=== PATIENT | male | born 1940 | race Caucasian/White ===

== ENCOUNTER 2018-04-12 12:05 | Inpatient (IN) ==
[2018-04-12] MEDS ORDERED: *HR* FentaNYL (PF) 100 MCG/2 ML VIAL IVP ONE (12:28)
[2018-04-12] MEDS ORDERED: 0.9 % Sodium Chloride 1,000 ML IVC ONE (12:28)
--- NOTE | 2018-04-12 12:31 | Emergency Department Note ---
Disposition Clinical Impression: Fecal impaction of rectum Urinary tract infection Qualifiers: Urinary tract infection type: site unspecified Hematuria presence: without hematuria Qualified Code(s): N39.0 - Urinary tract infection, site not specified Disposition: Admitted As Inpatient Condition: Fair Referrals: NONE,PCP [Non-Partnered Physician] - Forms: ED Satisfaction Letter, Work/School Release Time of Disposition: 13:55 Abdominal Pain HPI - General Chief Complaint: ED General Medical Stated Complaint: decreased urine after catherer change Time Seen by Provider: 04/12/18 12:17 Source: patient, EMS, other Mode of arrival: EMS Limitations: no limitations Nursing Notes Reviewed: Yes Vital Signs Reviewed: Yes - History of Present Illness Pt Subjective Complaint: abdominal pain Onset (ago): day(s) Consistency: constant Location: diffuse Pain Severity: moderate Quality: sharp Radiation: none Migration to: no migration Improves with: nothing Worsens with: nothing Associated symptoms: Reports: constipation. Denies: nausea, vomiting, fever Treatments prior to arrival: none - Related Data Home Medications Medication Instructions Recorded Confirmed Acetaminophen [Tylenol] 500 mg PO Q8HR PRN 02/09/16 04/12/18 Albuterol Sulfate [Ventolin Hfa] 1 puff IH Q4H PRN 02/09/16 04/12/18 Ascorbic Acid [Vitamin C] 500 mg PO DAILY 02/09/16 04/12/18 Calcium Carbonate [Calcium] 600 mg PO DAILY 02/09/16 04/12/18 Cholecalciferol (D-3) [Vitamin D] 1,000 unit PO BID #0 02/09/16 04/12/18 Docusate Sodium [Colace] 100 mg PO BID 02/09/16 04/12/18 L. Acidophilus/Pectin, [place] 1 cap PO BID 02/09/16 04/12/18 [Acidophilus Probiotic Capsule] Lactulose 60 ml PO QMWF 02/09/16 04/12/18 Polyethylene Glycol 3350 [MiraLAX] 17 gm PO DAILY PRN 02/09/16 04/12/18 Potassium Chloride 20 meq PO TID 02/19/16 04/12/18 traMADol [Ultram] 50 - 100 mg PO TID 02/19/16 04/12/18 Ferrous Sulfate 325 mg PO DAILY 04/12/18 04/12/18 Ketotifen Fumarate [Zaditor] 2 drop OP DAILY 04/12/18 04/12/18 Multivitamin/Iron/Folic Acid 1 each PO DAILY 04/12/18 04/12/18 [Centrum Complete Multivit Tab] Tacrolimus [Protopic] 100 gm TP BID 04/12/18 04/12/18 Previous Rx's Medication Instructions Recorded Magnesium Oxide [Mag-Ox] 400 mg PO BID 365 Days tablet 02/21/16 Allergies Allergy/AdvReac Type Severity Reaction Status Date / Time No Known Allergies Allergy Verified 04/12/18 12:07 All systems ED: reviewed and negative except as stated. Constitutional: Denies: fever, chills ENT ED: Denies: ear pain, throat pain, congestion Cardiovascular: Denies: chest pain, palpitations Respiratory: Denies: cough, dyspnea Gastrointestinal: Reports: abdominal pain, constipation. Denies: nausea, vomiting Neurological: Denies: headache Abdominal Pain PMH - Past Medical History Medical history: Reports: atrial fibrillation, cardiomyopathy, CHF, COPD, osteoporosis, other Male Surgical History: Reports: appendectomy, cholecystectomy, Tonsillectomy Psychiatric history: Reports: depression - Social History Smoking status: Former smoker Alcohol use: Reports: none Drug use: Reports: none Physical Exam - General Limitations: no limitations General appearance: alert, in no apparent distress - Head Head exam: atraumatic, normocephalic, normal inspection - Eye Eye exam: Present: normal appearance, PERRL, EOMI. Absent: scleral icterus, conjunctival injection - ENT ENT exam: normal exam, normal oropharynx, mucous membranes moist, normal external ear exam - Neck Neck exam: Present: trachea midline - Chest Chest inspection: Present: symmetric chest wall rise. Absent: tenderness - Respiratory Respiratory exam: Present: normal lung sounds bilaterally. Absent: respiratory distress, wheezes - Cardiovascular Cardiovascular exam: Present: normal rhythm, tachycardia, normal heart sounds - Abdominal Exam Abdominal exam: Present: tenderness, distention, other (Bowel sounds are present but high-pitched) Abdominal tenderness: Present: diffuse, moderate - Rectal Exam Tower Climber present during exam: Yes Rectal exam: Present: other (No evidence of fecal impaction) - Extremities Exam Extremities exam: Absent: pedal edema - Neurological Exam Neurological exam: Present: alert, oriented X3 - Psychiatric Psychiatric exam: Present: normal affect, normal mood - Skin Skin exam: Present: warm, dry. Absent: rash Course Course Narrative: Patient presents with abdominal discomfort and abdominal distention. Home health nurse changed his suprapubic catheter this morning and noticed the diste ntion of the belly in is concerned about the output from the catheter. However I examined the catheter and a been ultrasounded the bladder and catheter is definitely in place and there is urine coming from the Zhang into the tube. However the patient is really distended in the abdomen. He has bowel sounds but they are high pitched and I am concerned about the possibly of obstruction. He has long-standing history of constipation. I did not feel a fecal impaction on my rectal examination. I am going to do a lab workup, CT his abdomen to check for obstruction before we tried doing anything to get stool out of the colon. I will get him some pain medicines and IV fluids. Disposition will be based on diagnostic results and reevaluation. - Reevaluation(s) Reevaluation #1: The CAT scan showed fecal impaction but no obstruction or perforation. There is a lot of air in the colon proximal to that fecal impaction. Furthermore his white count was 20,000 and his urinalysis is strongly positive. He did a fecal disimpaction but also needs to be treated for urinary tract infection. The outside facility said that there was some hypotension but we never saw any hypotension here. His blood pressure right now is 100/70. We will give him IV fluids and I get him started on some Rocephin. I have already spoken with the hospitalist and arrange to get the patient admitted. Time: 13:54 - Consultations Consultation #1: Dr. Steel, hospitalist - I discussed the case with the hospitalist. We reviewed his presentation and his diagnostic results. He is accepted the patient for admission to the hospital. Time: 13:50 Vital Signs Temperature 99.3 F 04/12/18 12:08 Pulse Rate 118 04/12/18 12:08 Respiratory Rate 20 04/12/18 12:08 Blood Pressure 113/71 04/12/18 12:08 O2 Sat by Pulse Oximetry 97 04/12/18 12:08 Temperature 99.3 F 04/12/18 12:08 Pulse Rate 97 04/12/18 13:03 Respiratory Rate 18 04/12/18 13:03 Blood Pressure 104/74 04/12/18 13:03 O2 Sat by Pulse Oximetry 98 11/20/18 13:03 Oxygen Delivery Oxygen Delivery Room Air Abdominal Pain - Medical Records Medical records reviewed: Yes I reviewed the patient's medical records. - Lab Data Lab results reviewed: Yes I reviewed the patient's lab results. Result diagrams: 04/12/18 12:44 04/12/18 12:44 Lab Results 04/12/18 04/12/18 04/12/18 Range/Units 12:28 12:44 12:44 WBC 20.8 H (4.3-11.1) K/mcL RBC 4.24 (4.19-5.50) M/mcL Hgb 12.1 L (12.9-16.9) g/dL Hct 37.3 L (37.5-50.1) % MCV 88.0 (83.0-100.0) fL MCH 28.5 (28.0-33.3) pg MCHC 32.4 (31.6-35.5) g/dL RDW 15.3 H (11.5-14.5) % Plt Count 248 (140-400) K/mcL MPV 9.6 (9.4-12.4) fL Immature Gran % 1.0 (0-4) % Seg Neutrophils % 83.0 % Lymphocytes % 6.4 % Monocytes % 9.4 % Eosinophils % 0.0 % Basophils % 0.2 % Neutrophils # 17.3 H (1.6-8.9) K/mcL Lymphocytes # 1.3 (0.6-4.6) K/mcL Monocytes # 2.0 H (0.0-1.3) K/mcL Eosinophils # 0.0 (0.0-0.6) K/mcL Basophils # 0.0 (0.0-0.2) K/mcL Sodium 128 L (136-145) mEq/L Potassium 3.6 (3.5-5.1) mEq/L Chloride 96 L (98-107) mEq/L Carbon Dioxide 24 (23-29) mEq/L BUN 38 H (8-23) mg/dL Creatinine 0.58 L (0.70-1.30) mg/dL Est GFR ( Amer) > 60 (> 60) Est GFR (Non-Af Amer) > 60 (> 60) BUN/Creatinine Ratio 66 H (6-26) Glucose 126 H (70-105) mg/dL Calculated Osmolality 277 L (280-300) Lactic Acid (0.5-2.2) mmol/L Calcium 9.0 (8.6-10.3) mg/dL Total Bilirubin 0.5 (0.3-1.0) mg/dL Direct Bilirubin 0.0 (0.0-0.2) mg/dL Indirect Bilirubin 0.5 (0.0-1.2) mg/dL AST 40 H (13-39) Units/L ALT 46 (7-52) Units/L Alkaline Phosphatase 112 H (34-104) Units/L Serum Total Protein 7.0 (6.4-8.9) g/dL Albumin 3.2 L (3.5-5.7) g/dL Globulin 3.8 H (2.4-3.5) g/dL Albumin/Globulin Ratio 0.8 L (1.1-2.2) Lipase 10 L (11-82) Units/L Urine Color Yellow (Yellow) Urine Clarity Turbid A (Clear) Urine pH 8.5 H (5.0-8.0) pH Units Ur Specific [place] 1.020 (1.010-1.025) Urine Protein >=300 H (Neg-Trace) mg/dL Urine Glucose (UA) Normal (Normal) mg/dL Urine Ketones Negative (Negative) mg/dL Urine Blood Large H (Negative) Urine Nitrite Negative (Negative) Urine Bilirubin Negative (Negative) Urine Urobilinogen Normal (Normal) mg/dL Ur Leukocyte Esterase Large H (Negative) Urine Microscopic RBC 30-50 H (0-3) per hpf Urine Microscopic WBC TNTC H (0-3) per hpf Ur Squamous Epith Cells Few (None-Few) per lpf Urine Bacteria Many H (None-Few) per hpf Urine Mucus Few (Few) Ur Culture Indicated? YES A (NO) 04/12/18 Range/Units 12:44 WBC (4.3-11.1) K/mcL RBC (4.19-5.50) M/mcL Hgb (12.9-16.9) g/dL Hct (37.5-50.1) % MCV (83.0-100.0) fL MCH (28.0-33.3) pg MCHC (31.6-35.5) g/dL RDW (11.5-14.5) % Plt Count (140-400) K/mcL MPV (9.4-12.4) fL Immature Gran % (0-4) % Seg Neutrophils % % Lymphocytes % % Monocytes % % Eosinophils % % Basophils % % Neutrophils # (1.6-8.9) K/mcL Lymphocytes # (0.6-4.6) K/mcL Monocytes # (0.0-1.3) K/mcL Eosinophils # (0.0-0.6) K/mcL Basophils # (0.0-0.2) K/mcL Sodium (136-145) mEq/L Potassium (3.5-5.1) mEq/L Chloride (98-107) mEq/L Carbon Dioxide (23-29) mEq/L BUN (8-23) mg/dL Creatinine (0.70-1.30) mg/dL Est GFR ( Amer) (> 60) Est GFR (Non-Af Amer) (> 60) BUN/Creatinine Ratio (6-26) Glucose (70-105) mg/dL Calculated Osmolality (280-300) Lactic Acid 2.4 H (0.5-2.2) mmol/L Calcium (8.6-10.3) mg/dL Total Bilirubin (0.3-1.0) mg/dL Direct Bilirubin (0.0-0.2) mg/dL Indirect Bilirubin (0.0-1.2) mg/dL AST (13-39) Units/L ALT (7-52) Units/L Alkaline Phosphatase (34-104) Units/L Serum Total Protein (6.4-8.9) g/dL Albumin (3.5-5.7) g/dL Globulin (2.4-3.5) g/dL Albumin/Globulin Ratio (1.1-2.2) Lipase (11-82) Units/L Urine Color (Yellow) Urine Clarity (Clear) Urine pH (5.0-8.0) pH Units Ur Specific [place] (1.010-1.025) Urine Protein (Neg-Trace) mg/dL Urine Glucose (UA) (Normal) mg/dL Urine Ketones (Negative) mg/dL Urine Blood (Negative) Urine Nitrite (Negative) Urine Bilirubin (Negative) Urine Urobilinogen (Normal) mg/dL Ur Leukocyte Esterase (Negative) Urine Microscopic RBC (0-3) per hpf Urine Microscopic WBC (0-3) per hpf Ur Squamous Epith Cells (None-Few) per lpf Urine Bacteria (None-Few) per hpf Urine Mucus (Few) Ur Culture Indicated? (NO) - Radiology Data Radiology results reviewed: Yes I reviewed the patient's radiology results.
[2018-04-12 12:43] LABS: Bilirubin,Urine Negative (Negative); Blood,Urine Large (Negative); Clarity,Urine Turbid (Clear); Color,Urine Yellow (Yellow); Glucose,Urine (UA) Normal (Normal); Ketones,Urine Negative (Negative); Leukocyte Esterase,Urine Large (Negative); Nitrite,Urine Negative (Negative); PH,Urine 8.5 pH Units (5.0-8.0); Protein,Urine >=300 mg/dL (Neg-Trace); Urobilinogen,Urine Normal (Normal)
[2018-04-12 12:52] LABS: RBC,Urine 30-50 per hpf (0-3); Squamous Epithelial Cell,Urine Few per lpf (None-Few); WBC,Urine TNTC per hpf (0-3)
[2018-04-12 12:52] LABS: Basophils % 0.2 %; Hematocrit 37.3 % (37.5-50.1); Hemoglobin 12.1 g/dL (12.9-16.9); Lymphocytes # 1.3 K/mcL (0.6-4.6); Lymphocytes % 6.4 %; Mean Corpuscular HGB Conc 32.4 g/dL (31.6-35.5); Mean Corpuscular Hemoglobin 28.5 pg (28.0-33.3); Mean Platelet Volume 9.6 fL (9.4-12.4); Monocytes % 9.4 %; Neutrophils # 17.3 K/mcL (1.6-8.9); Platelet Count 248 K/mcL (140-400); Red Blood Count 4.24 M/mcL (4.19-5.50); Red Cell Distribution Width 15.3 % (11.5-14.5)
[2018-04-12 12:53] LABS: Bacteria,Urine Many per hpf (None-Few); Mucus,Urine Few (Few)
[2018-04-12 13:08] LABS: Alanine Aminotransferase 46 Units/L (7-52); Albumin 3.2 g/dL (3.5-5.7); Albumin/Globulin Ratio 0.8 (1.1-2.2); Alkaline Phosphatase 112 Units/L (34-104); Aspartate Amino Transferase 40 Units/L (13-39); BUN/Creatinine Ratio 66 (6-26); Bilirubin,Indirect 0.5 mg/dL (0.0-1.2); Bilirubin,Total 0.5 mg/dL (0.3-1.0); Blood Urea Nitrogen 38 mg/dL (8-23); Carbon Dioxide 24 mEq/L (23-29); Chloride 96 mEq/L (98-107); Globulin 3.8 g/dL (2.4-3.5); Glucose 126 mg/dL (70-105); Lipase 10 Units/L (11-82); Osmolality,Calculated 277 (280-300); Potassium 3.6 mEq/L (3.5-5.1); Sodium 128 mEq/L (136-145); eGFR For Non-African Americans > 60 (> 60)
[2018-04-12] MEDS ORDERED: 0.9 % Sodium Chloride 1,000 ML ONE (14:09)
[2018-04-12] MEDS ORDERED: 0.9 % Sodium Chloride 1,000 ML IVC SCH (15:20)
[2018-04-12] MEDS ORDERED: Naloxone 0.4 MG/ML INJ IVP PRN (15:20)
[2018-04-12] MEDS ORDERED: Milk and Molasses Enema 200 ML RC ONE (15:20)
[2018-04-12] MEDS: traMADol 50 MG TABLET PO SCH ×2 (16:51→20:16)
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
[2018-04-12] MEDS: Lactobacillus 1 EACH CAP.SPRINK PO SCH (20:16)
[2018-04-12] MEDS: 0.9 % Sodium Chloride w KCl 20 MEQ/1,000 ML MLS IVC SCH (20:17)
[2018-04-12] MEDS: Magnesium Oxide 400 MG TABLET PO SCH (20:17)
[2018-04-12] MEDS: Cholecalciferol (D-3) 1,000 UNIT TABLET PO SCH (20:17)
[2018-04-12] MEDS: TACROLIMUS TP SCH (23:15)
[2018-04-13] MEDS: 0.9 % Sodium Chloride w KCl 20 MEQ/1,000 ML MLS IVC SCH ×3 (04:07→21:53)
[2018-04-13 05:33] LABS: Basophils % 0.2 %; Hematocrit 30.4 % (37.5-50.1); Hemoglobin 10.1 g/dL (12.9-16.9); Immature Granulocytes % 1.3 % (0-4); Lymphocytes # 1.2 K/mcL (0.6-4.6); Mean Corpuscular HGB Conc 33.2 g/dL (31.6-35.5); Mean Corpuscular Hemoglobin 28.9 pg (28.0-33.3); Mean Corpuscular Volume 87.1 fL (83.0-100.0); Mean Platelet Volume 9.4 fL (9.4-12.4); Monocytes % 14.8 %; Neutrophils # 15.8 K/mcL (1.6-8.9); Platelet Count 219 K/mcL (140-400); Red Blood Count 3.49 M/mcL (4.19-5.50); Red Cell Distribution Width 15.4 % (11.5-14.5); Segmented Neutrophils % 77.7 %
[2018-04-13 05:57] LABS: Alanine Aminotransferase 38 Units/L (7-52); Albumin 2.7 g/dL (3.5-5.7); Albumin/Globulin Ratio 0.8 (1.1-2.2); Alkaline Phosphatase 103 Units/L (34-104); Aspartate Amino Transferase 29 Units/L (13-39); BUN/Creatinine Ratio 76 (6-26); Bilirubin,Total 0.4 mg/dL (0.3-1.0); Blood Urea Nitrogen 26 mg/dL (8-23); Calcium 8.2 mg/dL (8.6-10.3); Carbon Dioxide 21 mEq/L (23-29); Chloride 107 mEq/L (98-107); Globulin 3.2 g/dL (2.4-3.5); Glucose 98 mg/dL (70-105); Osmolality,Calculated 283 (280-300); Sodium 134 mEq/L (136-145); Total Protein 5.9 g/dL (6.4-8.9); eGFR For Non-African Americans > 60 (> 60)
[2018-04-13] MEDS: Cholecalciferol (D-3) 1,000 UNIT TABLET PO SCH ×2 (09:46→22:14)
[2018-04-13] MEDS: Magnesium Oxide 400 MG TABLET PO SCH ×2 (09:46→22:15)
[2018-04-13] MEDS: Multivit/Ca/Min/Fe/FA 1 TAB TABLET PO SCH (09:47)
[2018-04-13] MEDS: Ascorbic Acid 500 MG TABLET PO SCH (09:47)
[2018-04-13] MEDS: Lactulose Oral Soln 20 GM/30 ML UDC PO SCH (09:48)
[2018-04-13] MEDS: TACROLIMUS TP SCH ×2 (09:48→21:00)
[2018-04-13] MEDS: Lactobacillus 1 EACH CAP.SPRINK PO SCH ×2 (09:48→22:13)
[2018-04-13] MEDS: traMADol 50 MG TABLET PO SCH ×3 (09:48→22:14)
[2018-04-13] MEDS: KETOTIFEN OP SCH (09:48)
--- NOTE | 2018-04-13 12:25 | Internal Med Progress Note ---
Date of Encounter: 04/13/18 Time of Encounter: 12:15 - Assessment and plan (1) Fecal impaction of rectum Current Visit: Yes Status: Acute Assessment and plan: April 13. Improved. Will give saline enemas until clear. (2) Anemia Current Visit: No Status: Acute Assessment and plan: April 13. Order anemia testing in a.m. Qualifiers: Anemia type: unspecified type Qualified Code(s): D64.9 - Anemia, unspecified (3) Azotemia Current Visit: Yes Status: Acute Assessment and plan: April 13. Improved with BUN and creatinine now 26 and 0.34 respectively. Continue IV fluids and recheck labs in a.m. (4) Hyponatremia Current Visit: Yes Status: Acute (5) Leukocytosis Current Visit: No Status: Acute Assessment and plan: April 13. WBC minimally changed at 20.3. Left shift on differential has decreased. Recheck labs in a.m. Continue Rocephin and lactobacillus and give IV Levaquin today. Qualifiers: Leukocytosis type: unspecified Qualified Code(s): D72.829 - Elevated white blood cell count, unspecified - Subjective Interval history: April 13. He has no new complaints and feels better. - Constitutional Vitals: Temp Pulse Resp BP Pulse Ox 98.2 F 102 16 108/68 97 04/13/18 11:00 04/13/18 11:00 04/13/18 11:00 04/13/18 11:00 04/13/18 11:00 Exam: He is resting comfortably in bed and appears in no acute distress. His abdomen is less distended. Bowel sounds are present with some sounds high-pitched. Abdomen is nontender to light palpation. Extremities show no significant edema. I reviewed his medications and lab results. Internal Medicine: Result - Labs CBC & Chem 7: 04/13/18 05:25 04/13/18 05:25 Labs: Short CBC 04/12/18 04/13/18 Range/Units 12:44 05:25 WBC 20.8 H 20.3 H (4.3-11.1) K/mcL Hgb 12.1 L 10.1 L D (12.9-16.9) g/dL Hct 37.3 L 30.4 L (37.5-50.1) % Plt Count 248 219 (140-400) K/mcL Neutrophils # 17.3 H 15.8 H (1.6-8.9) K/mcL BMP 04/12/18 04/13/18 12:44 05:25 Sodium 128 L 134 L Potassium 3.6 4.0 Chloride 96 L 107 Carbon Dioxide 24 21 L BUN 38 H 26 H Creatinine 0.58 L 0.34 L Glucose 126 H 98 Calcium 9.0 8.2 L Liver Function 04/12/18 04/13/18 Range/Units 12:44 05:25 Total Bilirubin 0.5 0.4 (0.3-1.0) mg/dL Direct Bilirubin 0.0 (0.0-0.2) mg/dL AST 40 H 29 (13-39) Units/L ALT 46 38 (7-52) Units/L Alkaline Phosphatase 112 H 103 (34-104) Units/L Albumin 3.2 L 2.7 L (3.5-5.7) g/dL Urine 04/12/18 Range/Units 12:28 Urine Color Yellow (Yellow) Urine Clarity Turbid A (Clear) Urine pH 8.5 H (5.0-8.0) pH Units Ur Specific [place] 1.020 (1.010-1.025) Urine Protein >=300 H (Neg-Trace) mg/dL Urine Glucose (UA) Normal (Normal) mg/dL - Impressions Impressions Abdomen/Pelvis CT 04/12/18 12:28 IMPRESSION: 1. 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 2. Fecal impaction. 3. Cholecystectomy. D/ / 04/12/2018 13:28:38 Selwyn Bullock MD / nate Interpreting Provider: Selwyn Bullock MD Consult Discharge Plan - Plan Referrals: Osmany Steel MD [Primary Care Provider] - 1 week
[2018-04-13] MEDS: cefTRIAXone 1,000 MG in Water for inj. (sterile) 10 ML IVPB SCH (13:02)
[2018-04-13] MEDS: Levofloxacin 500 MG/100 ML 500 MG/100 ML BAG IVPB SCH (13:04)
[2018-04-14 05:53] LABS: Basophils % 0.2 %; Eosinophils % 0.2 %; Hematocrit 29.7 % (37.5-50.1); Hemoglobin 9.7 g/dL (12.9-16.9); Immature Granulocytes % 2.1 % (0-4); Lymphocytes # 1.1 K/mcL (0.6-4.6); Lymphocytes % 7.7 %; Mean Corpuscular HGB Conc 32.7 g/dL (31.6-35.5); Mean Corpuscular Hemoglobin 28.4 pg (28.0-33.3); Mean Corpuscular Volume 86.8 fL (83.0-100.0); Mean Platelet Volume 9.6 fL (9.4-12.4); Monocytes % 13.8 %; Neutrophils # 10.9 K/mcL (1.6-8.9); Platelet Count 244 K/mcL (140-400); Red Blood Count 3.42 M/mcL (4.19-5.50); Red Cell Distribution Width 15.5 % (11.5-14.5)
[2018-04-14] MEDS: 0.9 % Sodium Chloride w KCl 20 MEQ/1,000 ML MLS IVC SCH ×2 (05:57→13:12)
[2018-04-14 06:13] LABS: BUN/Creatinine Ratio 55 (6-26); Blood Urea Nitrogen 18 mg/dL (8-23); Calcium 8.2 mg/dL (8.6-10.3); Carbon Dioxide 20 mEq/L (23-29); Chloride 111 mEq/L (98-107); Glucose 106 mg/dL (70-105); Osmolality,Calculated 284 (280-300); Sodium 136 mEq/L (136-145); eGFR For Non-African Americans > 60 (> 60)
[2018-04-14] MEDS: Magnesium Oxide 400 MG TABLET PO SCH ×2 (08:36→20:34)
[2018-04-14] MEDS: Cholecalciferol (D-3) 1,000 UNIT TABLET PO SCH ×2 (08:36→20:34)
[2018-04-14] MEDS: Multivit/Ca/Min/Fe/FA 1 TAB TABLET PO SCH (08:36)
[2018-04-14] MEDS: Lactobacillus 1 EACH CAP.SPRINK PO SCH ×2 (08:36→20:34)
[2018-04-14] MEDS: Ascorbic Acid 500 MG TABLET PO SCH (08:37)
[2018-04-14] MEDS: traMADol 50 MG TABLET PO SCH ×3 (08:37→20:33)
[2018-04-14] MEDS: KETOTIFEN OP SCH (08:38)
[2018-04-14] MEDS: TACROLIMUS TP SCH ×2 (08:38→20:45)
--- NOTE | 2018-04-14 09:28 | Internal Med Progress Note ---
Date of Encounter: 04/14/18 Time of Encounter: 09:20 - Assessment and plan (1) Fecal impaction of rectum Current Visit: Yes Status: Acute Assessment and plan: April 13. Improved. Will give saline enemas until clear. April 14. Continue present regimen. (2) Anemia Current Visit: No Status: Acute Assessment and plan: April 13. Order anemia testing in a.m. April 14. Hemoglobin decreased to 9.7. Anemia testing pending. Qualifiers: Anemia type: unspecified type Qualified Code(s): D64.9 - Anemia, unspecified (3) Azotemia Current Visit: Yes Status: Acute Assessment and plan: April 13. Improved with BUN and creatinine now 26 and 0.34 respectively. Continue IV fluids and recheck labs in a.m. April 14. Resolved with BUN and creatinine now 18 and 0.33 respectively. Oral intake is adequate. Decrease IV fluid rate. (4) Hyponatremia Current Visit: Yes Status: Acute Assessment and plan: April 14. Resolved. Continue to monitor. (5) Leukocytosis Current Visit: No Status: Acute Assessment and plan: April 13. WBC minimally changed at 20.3. Left shift on differential has decreased. Recheck labs in a.m. Continue Rocephin and lactobacillus and give IV Levaquin today. April 14. WBC decreased to 14.4. Continue Rocephin and Levaquin with lacto bacillus. Qualifiers: Leukocytosis type: unspecified Qualified Code(s): D72.829 - Elevated white blood cell count, unspecified - Subjective Interval history: April 13. He has no new complaints and feels better. April 14. He has no new complaints and states his abdominal discomfort has lessened. - Constitutional Vitals: Temp Pulse Resp BP Pulse Ox 98.5 F 119 18 118/67 92 04/14/18 07:16 04/14/18 07:16 04/14/18 07:16 04/14/18 07:16 04/14/18 07:16 Exam: He is resting comfortably in bed and appears in no acute distress. His abdomen is less distended and is softer to palpation. He is confused stating that there were "a lot of babies being born here last night". I reviewed his medications and lab results. Internal Medicine: Result - Labs CBC & Chem 7: 04/14/18 05:25 04/14/18 05:25 Labs: Short CBC 04/14/18 Range/Units 05:25 WBC 14.4 H (4.3-11.1) K/mcL Hgb 9.7 L (12.9-16.9) g/dL Hct 29.7 L (37.5-50.1) % Plt Count 244 (140-400) K/mcL Neutrophils # 10.9 H (1.6-8.9) K/mcL BMP 04/14/18 05:25 Sodium 136 Potassium 5.0 Chloride 111 H Carbon Dioxide 20 L BUN 18 Creatinine 0.33 L Glucose 106 H Calcium 8.2 L Consult Discharge Plan - Plan Referrals: Osmany Steel MD [Primary Care Provider] - 1 week
[2018-04-14] MEDS ORDERED: Oxymetazoline Nasal SPRAY BOTTLE NS PRN (09:38)
[2018-04-14 10:18] LABS: Vitamin B12 487 pg/mL (250-1100)
[2018-04-14 10:23] LABS: Folate > 22.3 ng/mL (3.0-16.0)
[2018-04-14 10:24] LABS: % Iron Saturation 10 % (20-55); Ferritin 249 ng/mL (20-250); Iron 21 mcg/dL (65-175); Transferrin 149 mg/dL (203-362)
[2018-04-14] MEDS: Levofloxacin 500 MG/100 ML 500 MG/100 ML BAG IVPB SCH (13:52)
[2018-04-14] MEDS: cefTRIAXone 1,000 MG in Water for inj. (sterile) 10 ML IVPB SCH (15:35)
[2018-04-15 06:46] LABS: Basophils # 0.1 K/mcL (0.0-0.2); Basophils % 0.4 %; Eosinophils # 0.1 K/mcL (0.0-0.6); Eosinophils % 0.5 %; Hematocrit 29.9 % (37.5-50.1); Hemoglobin 9.8 g/dL (12.9-16.9); Immature Granulocytes % 5.4 % (0-4); Lymphocytes # 1.9 K/mcL (0.6-4.6); Lymphocytes % 16.1 %; Mean Corpuscular HGB Conc 32.8 g/dL (31.6-35.5); Mean Corpuscular Hemoglobin 28.2 pg (28.0-33.3); Mean Corpuscular Volume 86.2 fL (83.0-100.0); Mean Platelet Volume 9.3 fL (9.4-12.4); Monocytes # 1.9 K/mcL (0.0-1.3); Monocytes % 15.7 %; Platelet Count 256 K/mcL (140-400); Red Blood Count 3.47 M/mcL (4.19-5.50); Red Cell Distribution Width 15.4 % (11.5-14.5); Segmented Neutrophils % 61.9 %
[2018-04-15 06:56] VITALS: BP 127/79
[2018-04-15 07:12] LABS: Neutrophils # 7.4 K/mcL (1.6-8.9)
[2018-04-15 07:37] LABS: Platelet Estimate Normal (Normal)
[2018-04-15] MEDS: Ascorbic Acid 500 MG TABLET PO SCH (07:50)
[2018-04-15] MEDS: Cholecalciferol (D-3) 1,000 UNIT TABLET PO SCH (07:50)
[2018-04-15] MEDS: Multivit/Ca/Min/Fe/FA 1 TAB TABLET PO SCH (07:50)
[2018-04-15] MEDS: traMADol 50 MG TABLET PO SCH (07:50)
[2018-04-15] MEDS: Lactobacillus 1 EACH CAP.SPRINK PO SCH (07:50)
[2018-04-15] MEDS: Lactulose Oral Soln 20 GM/30 ML UDC PO SCH ×2 (07:51→07:57)
[2018-04-15] MEDS: Magnesium Oxide 400 MG TABLET PO SCH (07:51)
[2018-04-15] MEDS: 0.9 % Sodium Chloride w KCl 20 MEQ/1,000 ML MLS IVC SCH (08:01)
[2018-04-15] MEDS: TACROLIMUS TP SCH (09:48)
[2018-04-15] MEDS: KETOTIFEN OP SCH (09:48)
--- NOTE | 2018-04-15 10:36 | Discharge Summary ---
Orders not resulted at time of discharge: Pending orders 04/12/18 14:40 Culture,Blood [] Stat Date of Encounter: 04/15/18 Time of Encounter: 10:25 - Discharge Diagnosis (1) Fecal impaction of rectum Priority: Primary Status: Resolved (2) Anemia Priority: Secondary Status: Acute Qualifiers: Anemia type: unspecified type Qualified Code(s): D64.9 - Anemia, unspecified (3) Azotemia Priority: Secondary Status: Resolved (4) Hyponatremia Priority: Secondary Status: Acute (5) Leukocytosis Priority: Secondary Status: Acute Qualifiers: Leukocytosis type: unspecified Qualified Code(s): D72.829 - Elevated white blood cell count, unspecified Hospital course: Mr. Orozco is a 78 year old male who was sent from [facility] to emergency room for evaluation he complained of abdominal pain. He states onset was approximately 3 weeks ago but it worsened today after his suprapubic catheter was changed. He was evaluated in emergency room and found to have probable fecal impaction involving the sigmoid colon and rectum. He had significant leukocytosis with left shift and possible dehydration. He was admitted to [facility] floor for ongoing care needs. Initial orders were written by emergency room physician. I saw him on April 12 and performed a history and physical. He was given a milk and molasses enema. Scheduled lactulose was continued as at the residential. The day after admission he received saline enemas until clear. He had significant fecal output and decompression of his distended abdomen. His oral intake remained adequate. He was given Rocephin in emergency room for possible UTI. Urine culture returned showing growth of Escherichia coli and Proteus mirabilis. He was given Levaquin and Rocephin during his hospital stay. He will be prescribed Augmentin for 3 days with lactobacillus at discharge which appears to give adequate coverage for both organisms. Leukocytosis improved and left shift resolved by day of discharge with WBC 12.0 and 61.9% segs. Anemia testing showed iron 21, transferrin saturation 10%, transferrin 149, ferritin 249, B12 487, and folate> 22.3. He will continue ferrous sulfate with vitamin C at discharge. He was given IV fluids and azotemia resolved with BUN and creatinine decreasing to 18 and 0.33 respectively on day prior to discharge. Labs will be monitored at the residential. On April 15 he was stable for discharge back to [facility] where he will follow with me. - Time Spent with Patient Total time spent providing and/or coordinating discharge services: - Discharge Medications Prescriptions: Amoxicillin/Clavulanate [Augmentin] 875 mg PO BIDWM 3 Days tablet Home Medications: Acetaminophen [Tylenol] 500 mg PO Q8HR PRN 02/09/16 [History] Albuterol Sulfate [Ventolin Hfa] 1 puff IH Q4H PRN 02/09/16 [History] Ascorbic Acid [Vitamin C] 500 mg PO DAILY 02/09/16 [History] Calcium Carbonate [Calcium] 600 mg PO DAILY 02/09/16 [History] Cholecalciferol (D-3) [Vitamin D] 1,000 unit PO BID #0 02/09/16 [History] Docusate Sodium [Colace] 100 mg PO BID 02/09/16 [History] L. Acidophilus/Pectin, [place] [Acidophilus Probiotic Capsule] 1 cap PO BID 02/09/16 [History] Lactulose 60 ml PO QMWF 02/09/16 [History] Polyethylene Glycol 3350 [MiraLAX] 17 gm PO DAILY PRN 02/09/16 [History] Potassium Chloride 20 meq PO TID 02/19/16 [History] traMADol [Ultram] 50 - 100 mg PO TID 02/19/16 [History] Magnesium Oxide [Mag-Ox] 400 mg PO BID 365 Days tablet 02/21/16 [Rx] Ferrous Sulfate 325 mg PO DAILY 04/12/18 [History] Ketotifen Fumarate [Zaditor] 2 drop OP DAILY 04/12/18 [History] Multivitamin/Iron/Folic Acid [Centrum Complete Multivit Tab] 1 each PO DAILY 04/12/18 [History] Tacrolimus [Protopic] 100 gm TP BID 04/12/18 [History] Amoxicillin/Clavulanate [Augmentin] 875 mg PO BIDWM 3 Days tablet 04/15/18 [Rx] Allergies/Adverse Reactions: Allergy/AdvReac Type Severity Reaction Status Date / Time No Known Allergies Allergy Verified 04/12/18 12:07 Date of admission: 04/12/18 19:45 Primary care physician: Osmany Steel MD - Constitutional Vitals: Temp Pulse Resp BP Pulse Ox 97.9 F 103 18 127/79 94 04/15/18 06:51 11/23/18 06:51 04/15/18 06:51 04/15/18 06:51 04/15/18 08:15 - Patient Status Disposition: Transfer SNF Condition: Fair - Discharge Instructions Follow Up With: Osmany Steel MD [Primary Care Provider] - 1 week - Diet and Activity Activity: resume usual activities as tolerated Diet: advance to your usual diet
--- NOTE | 2018-04-15 10:46 | Physician Discharge Referral ---
ExtendedCare Referral Info Transfer To: [facility] Provider in Charge: Damián Provider in Charge after Transfer: PCP (Damián) - Diagnosis (1) Fecal impaction of rectum Priority: Primary Status: Resolved (2) Anemia Priority: Secondary Status: Acute (3) Azotemia Priority: Secondary Status: Resolved (4) Hyponatremia Priority: Secondary Status: Acute (5) Leukocytosis Priority: Secondary Status: Acute Prognosis: Good Aware of Diagnosis: Patient Aware of Prognosis: Patient - Transfer Medications Prescriptions: Amoxicillin/Clavulanate [Augmentin] 875 mg PO BIDWM 3 Days tablet Home Medications: Acetaminophen [Tylenol] 500 mg PO Q8HR PRN 02/09/16 [History] Albuterol Sulfate [Ventolin Hfa] 1 puff IH Q4H PRN 02/09/16 [History] Ascorbic Acid [Vitamin C] 500 mg PO DAILY 02/09/16 [History] Calcium Carbonate [Calcium] 600 mg PO DAILY 02/09/16 [History] Cholecalciferol (D-3) [Vitamin D] 1,000 unit PO BID #0 02/09/16 [History] Docusate Sodium [Colace] 100 mg PO BID 02/09/16 [History] L. Acidophilus/Pectin, [place] [Acidophilus Probiotic Capsule] 1 cap PO BID 02/09/16 [History] Lactulose 60 ml PO QMWF 02/09/16 [History] Polyethylene Glycol 3350 [MiraLAX] 17 gm PO DAILY PRN 02/09/16 [History] Potassium Chloride 20 meq PO TID 02/19/16 [History] traMADol [Ultram] 50 - 100 mg PO TID 02/19/16 [History] Magnesium Oxide [Mag-Ox] 400 mg PO BID 365 Days tablet 02/21/16 [Rx] Ferrous Sulfate 325 mg PO DAILY 04/12/18 [History] Ketotifen Fumarate [Zaditor] 2 drop OP DAILY 04/12/18 [History] Multivitamin/Iron/Folic Acid [Centrum Complete Multivit Tab] 1 each PO DAILY 04/12/18 [History] Tacrolimus [Protopic] 100 gm TP BID 04/12/18 [History] Amoxicillin/Clavulanate [Augmentin] 875 mg PO BIDWM 3 Days tablet 04/15/18 [Rx] Allergies/Adverse Reactions: Allergy/AdvReac Type Severity Reaction Status Date / Time No Known Allergies Allergy Verified 04/12/18 12:07 - Respiratory Orders Smoking Cessation: Smoking cessation has been advised. For more information, call the [place] Tobacco Quit Line at 6-442-UFKM-NOW. - Lab Orders Lab Orders: Other (include drug levels w/frequency) (CBC with differential, BMP on 04/18/2018.) - Rehabiliation Orders Rehab Potential: Poor - Diet Orders Regular CERTIFICATION: I certify that the transfer of the above named patient to an Extended Care Facility is necessary for the continuing treatment of the diagnosis listed. The above information is true and accurate reflection of patient's current condition. Confidential - Redisclosure prohibited without a patient's written consent.
== END 2018-04-15 12:43 | DRG 698 ==
LOC: INPPIK 12:05 → EMEROOPIK 12:05 → INPPIK 15:05
PROVIDERS: ADMIT Internal Medicine; ATTEND Internal Medicine

== ENCOUNTER 2018-08-24 23:31 | Inpatient (IN) ==
--- NOTE | 2018-08-24 23:44 | Emergency Department Note ---
Disposition Clinical Impression: Quadriplegia, Suprapubic catheter, Fever of unknown origin Urinary tract infection Qualifiers: Urinary tract infection type: site unspecified Hematuria presence: with hematuria Qualified Code(s): N39.0 - Urinary tract infection, site not specified Disposition: Admitted As Inpatient Condition: Fair Fever HPI - General Chief Complaint: ED Fever Stated Complaint: Fever, decreased urinary output, left hand edema Time Seen by Provider: 08/24/18 23:35 Source: patient, family, EMS Mode of arrival: EMS Limitations: no limitations, physical limitation (Quadriplegic) Nursing Notes Reviewed: Yes Vital Signs Reviewed: Yes - History of Present Illness HPI Narrative: 78-year-old quadriplegic male who presents emergency room who is been brought in for having a fever of 102+ at the care facility and being bloated distended and decreased urine output patient states though this is normal for him to be bloated distended and he denies any pain to admit that he had a fever she denies any blurred vision double vision loss vision he denies any rashes or lesions he recently had his pain pump in refused with more medication denies any numbness tingling weakness or loss sensation denies any rash all systems otherwise have been reviewed and otherwise negative with complete entire review systems patient is a DNR CC arrest Pt Subjective Complaint: fever, malaise, weakness Onset (ago): hour(s) Maximum Temperature Reported: 103 F Temperature Source: oral Associated symptoms: Reports: abdominal pain, other (Constipation). Denies: chills, rigors, myalgias, headache, rhinorrhea, nasal congestion, sore throat, stiff neck, cough, chest pain, dyspnea, nausea, vomiting, diarrhea, dysuria, rash, altered mental status, night sweats, weight loss - Related Data Home Medications Medication Instructions Recorded Confirmed RX: Acetaminophen [Tylenol] 500 mg PO Q8HR PRN 02/09/16 08/25/18 RX: Albuterol Sulfate [Ventolin 1 puff IH Q4H PRN 02/09/16 08/25/18 Hfa] RX: Ascorbic Acid [Vitamin C] 500 mg PO DAILY 02/09/16 08/25/18 RX: Calcium Carbonate [Calcium] 600 mg PO DAILY 02/09/16 08/25/18 RX: Cholecalciferol (D-3) [Vitamin 1,000 unit PO BID #0 02/09/16 08/25/18 D] RX: Docusate Sodium [Colace] 100 mg PO BID 02/09/16 08/25/18 RX: L. Acidophilus/Pectin, [place] 1 cap PO BID 02/09/16 08/25/18 [Acidophilus Probiotic Capsule] RX: Lactulose 60 ml PO QMWF 02/09/16 08/25/18 RX: Polyethylene Glycol 3350 17 gm PO DAILY PRN 02/09/16 08/25/18 [MiraLAX] RX: traMADol [Ultram] 50 - 100 mg PO TID 02/19/16 08/25/18 RX: Ferrous Sulfate 325 mg PO DAILY 04/12/18 08/25/18 RX: Ketotifen Fumarate [Zaditor] 2 drop OP DAILY 04/12/18 08/25/18 RX: Multivitamin/Iron/Folic Acid 1 each PO DAILY 04/12/18 08/25/18 [Centrum Complete Multivit Tab] RX: Tacrolimus [Protopic] 100 gm TP BID 04/12/18 08/25/18 Previous Rx's Medication Instructions Recorded RX: Magnesium Oxide [Mag-Ox] 400 mg PO BID 365 Days tablet 02/21/16 RX: Potassium Chloride 20 meq PO BID tab.er.prt 08/27/18 Allergies Allergy/AdvReac Type Severity Reaction Status Date / Time No Known Allergies Allergy Verified 08/25/18 00:06 All systems ED: reviewed and negative except as stated. Review of Systems: As Per HPI Constitutional: Reports: fever. Denies: chills, weakness Eyes: Denies: eye pain, eye discharge ENT ED: Denies: ear pain, throat pain, dental pain Cardiovascular: Denies: chest pain, palpitations, dyspnea on exertion Respiratory: Denies: cough, dyspnea, wheezes Gastrointestinal: Reports: abdominal pain, constipation. Denies: nausea, vomit ing Genitourinary: Denies: urgency, dysuria, frequency Musculoskeletal: Denies: back pain, neck pain Integumentary: Denies: rash, abrasion Neurological: Denies: headache, weakness Psychiatric: Denies: anxiety Endocrine: Denies: fatigue, heat or cold intolerance Hematological/Lymphatic: Denies: easy bleeding Allergic/Immunologic: Denies: facial swelling Fever PMH - Past Medical History Medical history: Reports: atrial fibrillation, cardiomyopathy, CHF, COPD, osteoporosis, other Surgical history: Reports: cholecystectomy, other (Suprapubic catheter placement) Psychiatric history: Reports: depression - Social History Smoking Status: Former smoker Alcohol use: Reports: none Drug use: Reports: none Physical Exam - General Limitations: no limitations General appearance: alert, in no apparent distress - Head Head exam: atraumatic, normocephalic, normal inspection - Eye Eye exam: Present: normal appearance, PERRL, EOMI - ENT ENT exam: normal exam, normal oropharynx, mucous membranes moist, TM's normal bilaterally, normal external ear exam - Neck Neck exam: Present: normal inspection, full ROM - Chest Chest inspection: Present: normal inspection, symmetric chest wall rise - Respiratory Respiratory exam: Present: normal lung sounds bilaterally - Cardiovascular Cardiovascular exam: Present: regular rate, normal rhythm, normal heart sounds - Abdominal Exam Abdominal exam: Present: soft, Non-Tender, distention (tympanetic), guarding, diminished bowel sounds. Absent: rebound, rigidity, mass, pulsatile mass - Extremities Exam Extremities exam: Present: normal inspection, full ROM, normal capillary refill, other (decreased range of motion in the extremities with waxing appearance to the extremities with minimal range of motion some mild flexion contractures of the hands tendon edema ). Absent: tenderness, pedal edema, joint swelling, calf tenderness Course Course Narrative: She will immediately seen and examined laboratory data was then chest x-ray EKG CT and labs were obtained with results and admit obtained with the elevated white count I spoke with Dr. Steel patient will be admitted transfuse antibiotics patient be transferred to [facility] for further management family in agreement Vital Signs O2 Sat by Pulse Oximetry 97 08/24/18 23:35 Temperature 97.9 F 08/27/18 06:44 Pulse Rate 83 08/27/18 06:44 Respiratory Rate 18 08/27/18 06:44 Blood Pressure 119/81 08/27/18 06:44 O2 Sat by Pulse Oximetry 97 08/27/18 06:44 Oxygen Delivery Oxygen Delivery Room Air Fever - MDM Narrative Medical decision making narrative: UTI pneumonia influenza bacterial or viral infection even complications secondary to constipation she has a chronic indwelling catheter which wall was have some sort of bacteria present but May be higher than normal - Differential Diagnosis Likely: fever of occult origin, viral infection, influenza - Lab Data Result diagrams: 08/27/18 04:30 08/27/18 04:30 Lab Results 08/24/18 08/25/18 08/25/18 Range/Units 23:47 00:07 00:07 WBC 25.8 H (4.3-11.1) K/mcL RBC 3.98 L (4.19-5.50) M/mcL Hgb 11.3 L (12.9-16.9) g/dL Hct 35.7 L (37.5-50.1) % MCV 89.7 (83.0-100.0) fL MCH 28.4 (28.0-33.3) pg MCHC 31.7 (31.6-35.5) g/dL RDW 14.9 H (11.5-14.5) % Plt Count 283 (140-400) K/mcL MPV 9.1 L (9.4-12.4) fL Immature Gran % [employer] Seg Neutrophils % 84.0 % Lymphocytes % 8.0 % Monocytes % 4.0 % Eosinophils % [employer] Basophils % [employer] Promyelocytes % 4.0 H (0) % Neutrophils # 21.7 H (1.6-8.9) K/mcL Lymphocytes # 2.1 (0.6-4.6) K/mcL Monocytes # 1.0 (0.0-1.3) K/mcL Eosinophils # [employer] Basophils # [employer] PT 12.8 H (9.4-12.1) Seconds INR 1.1 APTT 27.1 (26.0-36.0) Seconds Sodium (136-145) mEq/L Potassium (3.5-5.1) mEq/L Chloride (98-107) mEq/L Carbon Dioxide (23-29) mEq/L BUN (8-23) mg/dL Creatinine (0.70-1.30) mg/dL Est GFR ( Amer) (> 60) Est GFR (Non-Af Amer) (> 60) BUN/Creatinine Ratio (6-26) Glucose (70-105) mg/dL Calculated Osmolality (280-300) Lactic Acid (0.5-2.2) mmol/L Calcium (8.6-10.3) mg/dL Total Bilirubin (0.3-1.0) mg/dL AST (13-39) Units/L ALT (7-52) Units/L Alkaline Phosphatase (34-104) Units/L Serum Total Protein (6.4-8.9) g/dL Albumin (3.5-5.7) g/dL Globulin (2.4-3.5) g/dL Albumin/Globulin Ratio (1.1-2.2) Urine Color Yellow (Yellow) Urine Clarity Clear (Clear) Urine pH 8.5 H (5.0-8.0) pH Units Ur Specific [place] 1.020 (1.010-1.025) Urine Protein 100 H (Neg-Trace) mg/dL Urine Glucose (UA) Normal (Normal) mg/dL Urine Ketones Trace H (Negative) mg/dL Urine Blood Moderate H (Negative) Urine Nitrite Positive A (Negative) Urine Bilirubin Negative (Negative) Urine Urobilinogen Normal (Normal) mg/dL Ur Leukocyte Esterase Large H (Negative) Urine Microscopic RBC 5-15 H (0-3) per hpf Urine Microscopic WBC 30-50 H (0-3) per hpf Triple Phos Crystals Present Amorphous Sediment Few (Few) Hyaline Casts Moderate H (None-Few) per lpf Ur Culture Indicated? YES A (NO) 08/25/18 08/25/18 08/25/18 Range/Units 00:07 00:07 06:15 WBC 23.5 H (4.3-11.1) K/mcL RBC 3.76 L (4.19-5.50) M/mcL Hgb 10.7 L (12.9-16.9) g/dL Hct 32.3 L (37.5-50.1) % MCV 85.9 (83.0-100.0) fL MCH 28.5 (28.0-33.3) pg MCHC 33.1 (31.6-35.5) g/dL RDW 14.9 H (11.5-14.5) % Plt Count 272 (140-400) K/mcL MPV 8.9 L (9.4-12.4) fL Immature Gran % 3.5 Seg Neutrophils % 76.8 % Lymphocytes % 7.5 % Monocytes % 12.0 % Eosinophils % 0.0 Basophils % 0.2 Promyelocytes % (0) % Neutrophils # 18.1 H (1.6-8.9) K/mcL Lymphocytes # 1.8 (0.6-4.6) K/mcL Monocytes # 2.8 H (0.0-1.3) K/mcL Eosinophils # 0.0 Basophils # 0.1 PT (9.4-12.1) Seconds INR APTT (26.0-36.0) Seconds Sodium 130 L (136-145) mEq/L Potassium 3.9 (3.5-5.1) mEq/L Chloride 97 L (98-107) mEq/L Carbon Dioxide 25 (23-29) mEq/L BUN 23 (8-23) mg/dL Creatinine 0.47 L (0.70-1.30) mg/dL Est GFR ( Amer) > 60 (> 60) Est GFR (Non-Af Amer) > 60 (> 60) BUN/Creatinine Ratio 49 H (6-26) Glucose 124 H (70-105) mg/dL Calculated Osmolality 275 L (280-300) Lactic Acid 1.0 (0.5-2.2) mmol/L Calcium 9.1 (8.6-10.3) mg/dL Total Bilirubin 0.4 (0.3-1.0) mg/dL AST 19 (13-39) Units/L ALT 29 (7-52) Units/L Alkaline Phosphatase 75 (34-104) Units/L Serum Total Protein 7.1 (6.4-8.9) g/dL Albumin 3.4 L (3.5-5.7) g/dL Globulin 3.7 H (2.4-3.5) g/dL Albumin/Globulin Ratio 0.9 L (1.1-2.2) Urine Color (Yellow) Urine Clarity (Clear) Urine pH (5.0-8.0) pH Units Ur Specific [place] (1.010-1.025) Urine Protein (Neg-Trace) mg/dL Urine Glucose (UA) (Normal) mg/dL Urine Ketones (Negative) mg/dL Urine Blood (Negative) Urine Nitrite (Negative) Urine Bilirubin (Negative) Urine Urobilinogen (Normal) mg/dL Ur Leukocyte Esterase (Negative) Urine Microscopic RBC (0-3) per hpf Urine Microscopic WBC (0-3) per hpf Triple Phos Crystals Amorphous Sediment (Few) Hyaline Casts (None-Few) per lpf Ur Culture Indicated? (NO) 08/25/18 Range/Units 06:15 WBC (4.3-11.1) K/mcL RBC (4.19-5.50) M/mcL Hgb (12.9-16.9) g/dL Hct (37.5-50.1) % MCV (83.0-100.0) fL MCH (28.0-33.3) pg MCHC (31.6-35.5) g/dL RDW (11.5-14.5) % Plt Count (140-400) K/mcL MPV (9.4-12.4) fL Immature Gran % Seg Neutrophils % % Lymphocytes % % Monocytes % % Eosinophils % Basophils % Promyelocytes % (0) % Neutrophils # (1.6-8.9) K/mcL Lymphocytes # (0.6-4.6) K/mcL Monocytes # (0.0-1.3) K/mcL Eosinophils # Basophils # PT (9.4-12.1) Seconds INR APTT (26.0-36.0) Seconds Sodium 130 L (136-145) mEq/L Potassium 3.7 (3.5-5.1) mEq/L Chloride 97 L (98-107) mEq/L Carbon Dioxide 25 (23-29) mEq/L BUN 20 (8-23) mg/dL Creatinine 0.36 L (0.70-1.30) mg/dL Est GFR ( Amer) > 60 (> 60) Est GFR (Non-Af Amer) > 60 (> 60) BUN/Creatinine Ratio 56 H (6-26) Glucose 116 H (70-105) mg/dL Calculated Osmolality 274 L (280-300) Lactic Acid (0.5-2.2) mmol/L Calcium 8.6 (8.6-10.3) mg/dL Total Bilirubin (0.3-1.0) mg/dL AST (13-39) Units/L ALT (7-52) Units/L Alkaline Phosphatase (34-104) Units/L Serum Total Protein (6.4-8.9) g/dL Albumin (3.5-5.7) g/dL Globulin (2.4-3.5) g/dL Albumin/Globulin Ratio (1.1-2.2) Urine Color (Yellow) Urine Clarity (Clear) Urine pH (5.0-8.0) pH Units Ur Specific [place] (1.010-1.025) Urine Protein (Neg-Trace) mg/dL Urine Glucose (UA) (Normal) mg/dL Urine Ketones (Negative) mg/dL Urine Blood (Negative) Urine Nitrite (Negative) Urine Bilirubin (Negative) Urine Urobilinogen (Normal) mg/dL Ur Leukocyte Esterase (Negative) Urine Microscopic RBC (0-3) per hpf Urine Microscopic WBC (0-3) per hpf Triple Phos Crystals Amorphous Sediment (Few) Hyaline Casts (None-Few) per lpf Ur Culture Indicated? (NO) - Radiology Data Radiology results reviewed: Yes I reviewed the patient's radiology results. ITS Impressions Chest X-Ray 08/25/18 00:46 IMPRESSION: Scattered bilateral subcentimeter nodular opacities are present most pronounced in the mid and lower lung zones, an infectious/inflammatory process cannot be entirely excluded. This could be further evaluated via dedicated noncontrast CT of the thorax if warranted. D/ / Tanner Robertson / Tanner Robertson Interpreting Provider: Tanner Robertson Abdomen/Pelvis CT 08/25/18 23:44 IMPRESSION: Persistent right renal pelvis large calculus, nonobstructing. Rectal fecal impaction as seen previously. No additional findings. D/ / Forest Ambrocio MD / Forest Ambrocio MD Interpreting Provider: Forest Ambrocio MD Critical Care Time Critical Care Time: No
[2018-08-24] MEDS ORDERED: 0.9 % Sodium Chloride 1,000 ML IVC SCH (23:45)
[2018-08-25 00:27] LABS: Hematocrit 35.7 % (37.5-50.1); Hemoglobin 11.3 g/dL (12.9-16.9); Mean Corpuscular HGB Conc 31.7 g/dL (31.6-35.5); Mean Corpuscular Hemoglobin 28.4 pg (28.0-33.3); Mean Corpuscular Volume 89.7 fL (83.0-100.0); Mean Platelet Volume 9.1 fL (9.4-12.4); Platelet Count 283 K/mcL (140-400); Red Blood Count 3.98 M/mcL (4.19-5.50); Red Cell Distribution Width 14.9 % (11.5-14.5)
[2018-08-25 00:37] LABS: Bilirubin,Urine Negative (Negative); Blood,Urine Moderate (Negative); Clarity,Urine Clear (Clear); Color,Urine Yellow (Yellow); Glucose,Urine (UA) Normal (Normal); Ketones,Urine Trace mg/dL (Negative); Leukocyte Esterase,Urine Large (Negative); Nitrite,Urine Positive (Negative); PH,Urine 8.5 pH Units (5.0-8.0); Protein,Urine 100 mg/dL (Neg-Trace); Urobilinogen,Urine Normal (Normal)
[2018-08-25 00:49] LABS: Amorphous Sediment,Urine Few (Few); Hyaline Casts,Urine Moderate per lpf (None-Few); Triple Phosphate Crystal,Urine Present; WBC,Urine 30-50 per hpf (0-3)
[2018-08-25 00:49] LABS: Alanine Aminotransferase 29 Units/L (7-52); Albumin 3.4 g/dL (3.5-5.7); Albumin/Globulin Ratio 0.9 (1.1-2.2); Alkaline Phosphatase 75 Units/L (34-104); Aspartate Amino Transferase 19 Units/L (13-39); BUN/Creatinine Ratio 49 (6-26); Bilirubin,Total 0.4 mg/dL (0.3-1.0); Blood Urea Nitrogen 23 mg/dL (8-23); Calcium 9.1 mg/dL (8.6-10.3); Carbon Dioxide 25 mEq/L (23-29); Chloride 97 mEq/L (98-107); Globulin 3.7 g/dL (2.4-3.5); Glucose 124 mg/dL (70-105); Osmolality,Calculated 275 (280-300); Potassium 3.9 mEq/L (3.5-5.1); Sodium 130 mEq/L (136-145); Total Protein 7.1 g/dL (6.4-8.9); eGFR For Non-African Americans > 60 (> 60)
[2018-08-25 01:40] LABS: INR 1.1; Prothrombin Time 12.8 Seconds (9.4-12.1)
[2018-08-25 01:43] LABS: Activated Partial Thrombo Time 27.1 Seconds (26.0-36.0)
[2018-08-25 02:05] LABS: Lymphocytes # 2.1 K/mcL (0.6-4.6); Neutrophils # 21.7 K/mcL (1.6-8.9)
[2018-08-25] MEDS ORDERED: Ondansetron 4 MG/2 ML VIAL IVP PRN (03:15)
[2018-08-25] MEDS ORDERED: Naloxone 0.4 MG/ML INJ IVP PRN (03:15)
[2018-08-25 06:39] LABS: Basophils # 0.1 K/mcL (0.0-0.2); Basophils % 0.2 %; Hematocrit 32.3 % (37.5-50.1); Hemoglobin 10.7 g/dL (12.9-16.9); Immature Granulocytes % 3.5 % (0-4); Lymphocytes # 1.8 K/mcL (0.6-4.6); Lymphocytes % 7.5 %; Mean Corpuscular HGB Conc 33.1 g/dL (31.6-35.5); Mean Corpuscular Hemoglobin 28.5 pg (28.0-33.3); Mean Corpuscular Volume 85.9 fL (83.0-100.0); Mean Platelet Volume 8.9 fL (9.4-12.4); Monocytes # 2.8 K/mcL (0.0-1.3); Platelet Count 272 K/mcL (140-400); Red Blood Count 3.76 M/mcL (4.19-5.50); Red Cell Distribution Width 14.9 % (11.5-14.5); Segmented Neutrophils % 76.8 %
[2018-08-25 06:56] LABS: Neutrophils # 18.1 K/mcL (1.6-8.9)
[2018-08-25 07:02] LABS: BUN/Creatinine Ratio 56 (6-26); Blood Urea Nitrogen 20 mg/dL (8-23); Calcium 8.6 mg/dL (8.6-10.3); Carbon Dioxide 25 mEq/L (23-29); Chloride 97 mEq/L (98-107); Glucose 116 mg/dL (70-105); Osmolality,Calculated 274 (280-300); Potassium 3.7 mEq/L (3.5-5.1); Sodium 130 mEq/L (136-145); eGFR For Non-African Americans > 60 (> 60)
[2018-08-25] MEDS: Cholecalciferol (D-3) 1,000 UNIT TABLET PO SCH ×2 (08:55→20:01)
[2018-08-25] MEDS: Ascorbic Acid 500 MG TABLET PO SCH (08:55)
[2018-08-25] MEDS: traMADol 50 MG TABLET PO SCH ×3 (08:56→20:02)
[2018-08-25] MEDS: Lactobacillus 1 EACH CAP.SPRINK PO SCH ×2 (08:56→20:01)
[2018-08-25] MEDS: Multivit/Ca/Min/Fe/FA 1 TAB TABLET PO SCH (08:56)
[2018-08-25] MEDS: Magnesium Oxide 400 MG TABLET PO SCH ×2 (08:56→20:01)
[2018-08-25] MEDS: 0.9 % Sodium Chloride 1,000 ML IVC SCH ×4 (08:59→19:24)
[2018-08-25] MEDS: TACROLIMUS TP SCH ×2 (09:12→19:57)
[2018-08-25] MEDS: Ketotifen Fumarate [Zaditor] OP SCH (09:12)
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
[2018-08-25] MEDS: Levofloxacin 500 MG/100 ML 500 MG/100 ML BAG IVPB SCH (12:22)
[2018-08-25] MEDS: Clotrimazole 1% CRM 15 GM TUBE TP SCH ×2 (12:23→20:02)
[2018-08-25] MEDS: 0.45 % Sodium Chloride w/KCl 20 MEQ/1,000 ML MLS IVC SCH (12:23)
[2018-08-25] MEDS: cefTRIAXone 2,000 MG in Water for inj. (sterile) 20 ML 20 ML IVP SCH (22:36)
[2018-08-26] MEDS: *HR* Enoxaparin 40 MG/0.4 ML SYRINGE SQ SCH (05:28)
[2018-08-26] MEDS: 0.45 % Sodium Chloride w/KCl 20 MEQ/1,000 ML MLS IVC SCH ×2 (05:28→22:34)
[2018-08-26 06:47] LABS: Basophils # 0.1 K/mcL (0.0-0.2); Basophils % 0.3 %; Eosinophils % 0.2 %; Hematocrit 30.4 % (37.5-50.1); Hemoglobin 10.1 g/dL (12.9-16.9); Immature Granulocytes % 2.3 % (0-4); Lymphocytes # 2.1 K/mcL (0.6-4.6); Lymphocytes % 12.3 %; Mean Corpuscular HGB Conc 33.2 g/dL (31.6-35.5); Mean Corpuscular Hemoglobin 28.6 pg (28.0-33.3); Mean Corpuscular Volume 86.1 fL (83.0-100.0); Mean Platelet Volume 9.3 fL (9.4-12.4); Monocytes # 2.4 K/mcL (0.0-1.3); Monocytes % 14.5 %; Neutrophils # 11.8 K/mcL (1.6-8.9); Platelet Count 263 K/mcL (140-400); Red Blood Count 3.53 M/mcL (4.19-5.50); Segmented Neutrophils % 70.4 %
[2018-08-26 06:57] LABS: BUN/Creatinine Ratio 46 (6-26); Blood Urea Nitrogen 16 mg/dL (8-23); Calcium 8.7 mg/dL (8.6-10.3); Carbon Dioxide 25 mEq/L (23-29); Chloride 99 mEq/L (98-107); Glucose 92 mg/dL (70-105); Osmolality,Calculated 271 (280-300); Potassium 4.3 mEq/L (3.5-5.1); Sodium 130 mEq/L (136-145); eGFR For Non-African Americans > 60 (> 60)
[2018-08-26] MEDS: Cholecalciferol (D-3) 1,000 UNIT TABLET PO SCH ×2 (08:42→20:37)
[2018-08-26] MEDS: Magnesium Oxide 400 MG TABLET PO SCH ×2 (08:42→20:36)
[2018-08-26] MEDS: Ascorbic Acid 500 MG TABLET PO SCH (08:42)
[2018-08-26] MEDS: traMADol 50 MG TABLET PO SCH ×3 (08:42→20:36)
[2018-08-26] MEDS: Multivit/Ca/Min/Fe/FA 1 TAB TABLET PO SCH (08:42)
[2018-08-26] MEDS: Lactobacillus 1 EACH CAP.SPRINK PO SCH ×2 (08:42→20:37)
[2018-08-26] MEDS: Levofloxacin 500 MG/100 ML 500 MG/100 ML BAG IVPB SCH (08:43)
[2018-08-26] MEDS: TACROLIMUS TP SCH ×2 (08:43→20:38)
[2018-08-26] MEDS: Clotrimazole 1% CRM 15 GM TUBE TP SCH ×2 (08:43→20:37)
[2018-08-26] MEDS: Ketotifen Fumarate [Zaditor] OP SCH (08:43)
[2018-08-26 08:52] LABS: % Iron Saturation 8 % (20-55); Iron 19 mcg/dL (65-175); Transferrin 167 mg/dL (203-362)
[2018-08-26] MEDS ORDERED: Lactulose Oral Soln 20 GM/30 ML UDC PO SCH (09:00)
[2018-08-26 09:01] LABS: Estimated Average Glucose 111 mg/dl; Hemoglobin A1C 5.5 %
[2018-08-26 09:10] LABS: Ferritin 221 ng/mL (20-250)
[2018-08-26 09:15] LABS: Folate 18.8 ng/mL (3.0-16.0)
--- NOTE | 2018-08-26 09:42 | Internal Med Progress Note ---
Date of Encounter: 08/26/18 Time of Encounter: 09:35 - Assessment and plan (1) Leukocytosis Current Visit: No Status: Acute Assessment and plan: August 26. Decreased to 16.8 K with less left shift on differential. Continue Rocephin and Levaquin for UTI and/or pneumonia. Urine culture report pending Qualifiers: Leukocytosis type: unspecified Qualified Code(s): D72.829 - Elevated white blood cell count, unspecified (2) Anemia Current Visit: No Status: Acute Assessment and plan: August 26. Hemoglobin has decreased to 10.1. Anemia testing results partially pending. Qualifiers: Anemia type: unspecified type Qualified Code(s): D64.9 - Anemia, unspecified (3) Fecal impaction of rectum Current Visit: No Status: Acute Assessment and plan: August 26. Multiple stools documented following soapsuds enema. (4) Intertrigo Current Visit: Yes Status: Acute Assessment and plan: August 26. Continue Lotrimin cream. (5) Hyperglycemia Current Visit: Yes Status: Acute Assessment and plan: August 26. Hemoglobin A1c satisfactory at 5.5%. FBS normal at 92 today. - Subjective Interval history: August 26. He has no new complaints. - Constitutional Vitals: Temp Pulse Resp BP Pulse Ox 99.1 F 105 24 135/81 96 08/26/18 06:22 08/26/18 06:22 08/26/18 06:22 08/26/18 06:22 08/26/18 06:22 Exam: He is resting comfortably in bed and appears in no acute distress. His affect is overall cheerful. I reviewed his medications and lab results. Internal Medicine: Result - Labs CBC & Chem 7: 08/26/18 04:44 08/26/18 04:44 Labs: Short CBC 08/26/18 Range/Units 04:44 WBC 16.8 H (4.3-11.1) K/mcL Hgb 10.1 L (12.9-16.9) g/dL Hct 30.4 L (37.5-50.1) % Plt Count 263 (140-400) K/mcL Neutrophils # 11.8 H (1.6-8.9) K/mcL BMP 08/26/18 04:44 Sodium 130 L Potassium 4.3 Chloride 99 Carbon Dioxide 25 BUN 16 Creatinine 0.35 L Glucose 92 Calcium 8.7 - ABG Interpretation ABG results: PT/INR, D-dimer PT 12.8 Seconds (9.4-12.1) H 08/25/18 00:07 Consult Discharge Plan - Plan Referrals: Osmany Steel MD [Primary Care Provider] - 1 week
[2018-08-26] MEDS: cefTRIAXone 2,000 MG in Water for inj. (sterile) 20 ML 20 ML IVP SCH (22:33)
[2018-08-27 04:51] LABS: Basophils # 0.1 K/mcL (0.0-0.2); Basophils % 0.7 %; Eosinophils # 0.2 K/mcL (0.0-0.6); Eosinophils % 1.6 %; Hematocrit 32.9 % (37.5-50.1); Hemoglobin 10.6 g/dL (12.9-16.9); Lymphocytes % 19.5 %; Mean Corpuscular HGB Conc 32.2 g/dL (31.6-35.5); Mean Corpuscular Hemoglobin 28.1 pg (28.0-33.3); Mean Corpuscular Volume 87.3 fL (83.0-100.0); Monocytes % 13.4 %; Neutrophils # 7.1 K/mcL (1.6-8.9); Platelet Count 277 K/mcL (140-400); Red Blood Count 3.77 M/mcL (4.19-5.50); Red Cell Distribution Width 14.9 % (11.5-14.5); Segmented Neutrophils % 61.8 %
[2018-08-27 04:56] LABS: Lymphocytes # 2.2 K/mcL (0.6-4.6); Monocytes # 1.5 K/mcL (0.0-1.3)
[2018-08-27 05:10] LABS: BUN/Creatinine Ratio 39 (6-26); Blood Urea Nitrogen 14 mg/dL (8-23); Calcium 9.2 mg/dL (8.6-10.3); Carbon Dioxide 25 mEq/L (23-29); Chloride 103 mEq/L (98-107); Glucose 106 mg/dL (70-105); Osmolality,Calculated 279 (280-300); Potassium 4.8 mEq/L (3.5-5.1); Sodium 134 mEq/L (136-145); eGFR For Non-African Americans > 60 (> 60)
[2018-08-27] MEDS: *HR* Enoxaparin 40 MG/0.4 ML SYRINGE SQ SCH (05:46)
[2018-08-27 06:45] VITALS: BP 119/81
--- NOTE | 2018-08-27 09:11 | Discharge Summary ---
Orders not resulted at time of discharge: Pending orders 08/24/18 23:44 Culture,Blood [BC] Stat 08/24/18 23:47 Culture,Urine [RM] Stat Date of Encounter: 08/27/18 Time of Encounter: 09:00 - Discharge Diagnosis (1) Urinary tract infection Priority: Primary Status: Acute Qualifiers: Urinary tract infection type: site unspecified Hematuria presence: with hematuria Qualified Code(s): N39.0 - Urinary tract infection, site not specified; R31.9 - Hematuria, unspecified (2) Anemia Priority: Secondary Status: Acute Qualifiers: Anemia type: iron deficiency Iron deficiency anemia type: unspecified iron deficiency Qualified Code(s): D50.9 - Iron deficiency anemia, unspecified (3) Fecal impaction of rectum Priority: Secondary Status: Resolved (4) Intertrigo Priority: Secondary Status: Acute (5) Hyperglycemia Priority: Secondary Status: Resolved Hospital course: Mr. Orozco is a 78 year old male who was sent from [facility] after staff found him to have fever 102 per ER report. He denies cough vomiting diarrhea or pain. He was evaluated in emergency room and was found to have leukocytosis with WBC 25.8K with 84% segs. He was felt to have probable UTI and was started on IV antibiotics and IV fluids and admitted to [facility] floor for ongoing care needs. Initial orders were written by the emergency room physician. I saw him on August 25 and performed the history and physical. He was started empirically on Rocephin in emergency room. I added IV Levaquin for added spectrum coverage. Lactobacillus was given. Preliminary urine culture reports available on day of discharge showed growth of 2 gram-negative rods. He had good clinical response with WBC decreasing to 11.5 on day of discharge with resolution of left shift. He will remain on Levaquin and be given Ceftin for 3 additional days at discharge. Anemia testing showed iron 19, transferrin saturation 8%, transferrin 167, ferritin 221, B12 304, and folate 18.8. He will continue ferrous sulfate with ascorbic acid at the [facility]. Labs will be monitored as needed. TSH returned normal at 2.470. There were no new problems and on August 27 he was stable for discharge back to [facility]. He will follow with me. - Time Spent with Patient Total time spent providing and/or coordinating discharge services: - Discharge Medications Prescriptions: New Cefuroxime PO [Ceftin] 500 mg PO Q12HR 3 Days tablet Lactobacillus [Culturelle] 1 each PO BID 3 Days cap.sprink levoFLOXacin [Levaquin] 500 mg PO DAILY 3 Days tablet Potassium Chloride 20 meq PO BID tab.er.prt Continue L. Acidophilus/Pectin, [place] [Acidophilus Probiotic Capsule] 1 cap PO BID Ascorbic Acid [Vitamin C] 500 mg PO DAILY Acetaminophen [Tylenol] 500 mg PO Q8HR PRN PRN Reason: Pain Polyethylene Glycol 3350 [MiraLAX] 17 gm PO DAILY PRN PRN Reason: Constipation Docusate Sodium [Colace] 100 mg PO BID Cholecalciferol (D-3) [Vitamin D] 1,000 unit PO BID #0 Lactulose 60 ml PO QMWF Calcium Carbonate [Calcium] 600 mg PO DAILY Albuterol Sulfate [Ventolin Hfa] 1 puff IH Q4H PRN PRN Reason: Shortness Of Breath traMADol [Ultram] 50 - 100 mg PO TID Magnesium Oxide [Mag-Ox] 400 mg PO BID 365 Days tablet Ketotifen Fumarate [Zaditor] 2 drop OP DAILY Ferrous Sulfate 325 mg PO DAILY Multivitamin/Iron/Folic Acid [Centrum Complete Multivit Tab] 1 each PO DAILY Tacrolimus [Protopic] 100 gm TP BID Discontinued Potassium Chloride 20 meq PO TID Home Medications: Acetaminophen [Tylenol] 500 mg PO Q8HR PRN 02/09/16 [History] Albuterol Sulfate [Ventolin Hfa] 1 puff IH Q4H PRN 02/09/16 [History] Ascorbic Acid [Vitamin C] 500 mg PO DAILY 02/09/16 [History] Calcium Carbonate [Calcium] 600 mg PO DAILY 02/09/16 [History] Cholecalciferol (D-3) [Vitamin D] 1,000 unit PO BID #0 02/09/16 [History] Docusate Sodium [Colace] 100 mg PO BID 02/09/16 [History] L. Acidophilus/Pectin, [place] [Acidophilus Probiotic Capsule] 1 cap PO BID 02/09/16 [History] Lactulose 60 ml PO QMWF 02/09/16 [History] Polyethylene Glycol 3350 [MiraLAX] 17 gm PO DAILY PRN 02/09/16 [History] traMADol [Ultram] 50 - 100 mg PO TID 02/19/16 [History] Magnesium Oxide [Mag-Ox] 400 mg PO BID 365 Days tablet 02/21/16 [Rx] Ferrous Sulfate 325 mg PO DAILY 04/12/18 [History] Ketotifen Fumarate [Zaditor] 2 drop OP DAILY 04/12/18 [History] Multivitamin/Iron/Folic Acid [Centrum Complete Multivit Tab] 1 each PO DAILY 04/12/18 [History] Tacrolimus [Protopic] 100 gm TP BID 04/12/18 [History] Cefuroxime PO [Ceftin] 500 mg PO Q12HR 3 Days tablet 08/27/18 [Rx] Lactobacillus [Culturelle] 1 each PO BID 3 Days cap.sprink 08/27/18 [Rx] Potassium Chloride 20 meq PO BID tab.er.prt 08/27/18 [Rx] levoFLOXacin [Levaquin] 500 mg PO DAILY 3 Days tablet 08/27/18 [Rx] Allergies/Adverse Reactions: Allergy/AdvReac Type Severity Reaction Status Date / Time No Known Allergies Allergy Verified 08/25/18 00:06 Date of admission: 08/25/18 11:14 Primary care physician: Osmany Steel MD - Constitutional Vitals: Temp Pulse Resp BP Pulse Ox 97.9 F 83 18 119/81 97 08/27/18 06:44 08/27/18 06:44 08/27/18 06:44 08/27/18 06:44 08/27/18 06:44 - Patient Status Disposition: Transfer SNF Condition: Fair - Discharge Instructions Follow Up With: Osmany Steel MD [Primary Care Provider] - 1 week - Diet and Activity Activity: resume usual activities as tolerated Diet: advance to your usual diet
--- NOTE | 2018-08-27 09:17 | Physician Discharge Referral ---
ExtendedCare Referral Info Transfer To: [facility] Provider in Charge: Damián Provider in Charge after Transfer: PCP (Damián) - Diagnosis (1) Urinary tract infection Priority: Primary Status: Acute (2) Anemia Priority: Secondary Status: Acute (3) Fecal impaction of rectum Priority: Secondary Status: Resolved (4) Intertrigo Priority: Secondary Status: Acute (5) Hyperglycemia Priority: Secondary Status: Resolved Prognosis: Fair Aware of Diagnosis: Patient Aware of Prognosis: Patient - Transfer Medications Prescriptions: Cefuroxime PO [Ceftin] 500 mg PO Q12HR 3 Days tablet Lactobacillus [Culturelle] 1 each PO BID 3 Days cap.sprink levoFLOXacin [Levaquin] 500 mg PO DAILY 3 Days tablet Home Medications: Acetaminophen [Tylenol] 500 mg PO Q8HR PRN 02/09/16 [History] Albuterol Sulfate [Ventolin Hfa] 1 puff IH Q4H PRN 02/09/16 [History] Ascorbic Acid [Vitamin C] 500 mg PO DAILY 02/09/16 [History] Calcium Carbonate [Calcium] 600 mg PO DAILY 02/09/16 [History] Cholecalciferol (D-3) [Vitamin D] 1,000 unit PO BID #0 02/09/16 [History] Docusate Sodium [Colace] 100 mg PO BID 02/09/16 [History] L. Acidophilus/Pectin, [place] [Acidophilus Probiotic Capsule] 1 cap PO BID 02/09/16 [History] Lactulose 60 ml PO QMWF 02/09/16 [History] Polyethylene Glycol 3350 [MiraLAX] 17 gm PO DAILY PRN 02/09/16 [History] traMADol [Ultram] 50 - 100 mg PO TID 02/19/16 [History] Magnesium Oxide [Mag-Ox] 400 mg PO BID 365 Days tablet 02/21/16 [Rx] Ferrous Sulfate 325 mg PO DAILY 04/12/18 [History] Ketotifen Fumarate [Zaditor] 2 drop OP DAILY 04/12/18 [History] Multivitamin/Iron/Folic Acid [Centrum Complete Multivit Tab] 1 each PO DAILY 04/12/18 [History] Tacrolimus [Protopic] 100 gm TP BID 04/12/18 [History] Cefuroxime PO [Ceftin] 500 mg PO Q12HR 3 Days tablet 08/27/18 [Rx] Lactobacillus [Culturelle] 1 each PO BID 3 Days cap.sprink 08/27/18 [Rx] Potassium Chloride 20 meq PO BID tab.er.prt 08/27/18 [Rx] levoFLOXacin [Levaquin] 500 mg PO DAILY 3 Days tablet 08/27/18 [Rx] Allergies/Adverse Reactions: Allergy/AdvReac Type Severity Reaction Status Date / Time No Known Allergies Allergy Verified 08/25/18 00:06 - Respiratory Orders Smoking Cessation: Smoking cessation has been advised. For more information, call the [place] [employer] Quit Line at [phone]-NOW. - Advance Directives Code Status: DNR-Arrest - Mobility Orders Bedrest - Rehabiliation Orders Rehab Potential: Poor - Diet Orders Regular CERTIFICATION: I certify that the transfer of the above named patient to an Extended Care Facility is necessary for the continuing treatment of the diagnosis listed. The above information is true and accurate reflection of patient's current condition. Confidential - Redisclosure prohibited without a patient's written consent.
[2018-08-27] MEDS: Levofloxacin 500 MG/100 ML 500 MG/100 ML BAG IVPB SCH (09:48)
[2018-08-27] MEDS: traMADol 50 MG TABLET PO SCH (09:50)
[2018-08-27] MEDS: Ascorbic Acid 500 MG TABLET PO SCH (09:50)
[2018-08-27] MEDS: Magnesium Oxide 400 MG TABLET PO SCH (09:50)
[2018-08-27] MEDS: Lactobacillus 1 EACH CAP.SPRINK PO SCH (09:50)
[2018-08-27] MEDS: Multivit/Ca/Min/Fe/FA 1 TAB TABLET PO SCH (09:50)
[2018-08-27] MEDS: Cholecalciferol (D-3) 1,000 UNIT TABLET PO SCH (09:50)
[2018-08-27] MEDS: Ketotifen Fumarate [Zaditor] OP SCH (09:51)
[2018-08-27] MEDS: TACROLIMUS TP SCH (09:51)
[2018-08-27] MEDS: Clotrimazole 1% CRM 15 GM TUBE TP SCH (09:57)
== END 2018-08-27 12:39 | DRG 689 ==
LOC: EMEROOPIK 23:31 → INPPIK 23:31
PROVIDERS: ADMIT Internal Medicine; ATTEND Internal Medicine